=== PATIENT | female | born 1975 | race Caucasian/White ===

== ENCOUNTER → 2024-04-06 15:30 | Outpatient (BNVA) | payer OTHER, SELFPAY | PROVIDERS: Family Provider Nurse Practitioner Family; PCP Nurse Practitioner Family; Referring Provider Surgery; Visit Provider Obstetrics & Gynecology | DX: Z12.4 Encounter for screening for malignant neoplasm of cervix (principal) | CPT/HCPCS: 87624 ==

== ENCOUNTER 2024-04-21 09:29 | Day surgery (SDC) | payer OTHER, SELFPAY ==
[2024-04-21 09:55] VITALS: BP 115/83; PULSE 83; RESP 17; TEMP 36.5; O2SAT 97; BMI 34.6
[2024-04-21 10:00] LABS: OR HCG Qualitative Urine Negative (Negative)
[2024-04-21] MEDS: sodium chloride 0.9% 1,000 ML 30 ML IV (10:05)
--- NOTE | 2024-04-21 11:11 | ANES.PREANE2 ---
Pre-Anesthetic Assessment Height/Weight: Height 1.65 m Weight 94.347 kg Temp Pulse Resp BP Pulse Ox O2 Del Method 97.7 F 83 17 115/83 97 Room Air 04/21/24 09:55 04/21/24 09:55 04/21/24 09:55 04/21/24 09:55 04/21/24 09:55 04/21/24 09:55 Preop Diagnosis: GERD, screening Operation Date: 04/21/24 11:00 Proposed Procedures p EGD 61040, 34564, , G0105, R10.9(Not Applicable) - Darshan Mcgee DO s Colonoscopy(Not Applicable) - Darshan Mcgee DO Last intake: Intake Last Liquid Date 04/20/24 Last Liquid Time 20:00 Last Solid Date 04/19/24 Last Solid Time 16:00 Social No alcohol and No tobacco Exam alert and oriented x 3 Airway Submandibular: within normal limits Cervical ROM: within normal limits Mallampati: Class II Dentition: full History/ROS No significant history except as noted Pulmonary None reported CV/HEM None reported None reported Hepatic None reported GI Gastroesophageal Reflux Disease Metabolic None reported Musc/skel None reported Neuropsych None reported Anesthetic Plan ASA status: 1 Anesthesia: MAC Risk of > 500 ml blood loss (7ml/kg in children): No Medications/Allergies Home Medications Medication Instructions Recorded Confirmed Last Taken Type pantoprazole 40 mg tablet,delayed 40 mg PO BID 6 weeks #84 tabs 03/08/24 04/21/24 Unknown Rx release (Protonix) Allergies Allergy/AdvReac Type Severity Reaction Status Date / Time No Known Allergies Allergy Verified 04/19/24 12:17 Current Medications Generic Name Dose Route Start Last Admin Trade Name Freq PRN Reason Stop Dose Admin Sodium Chloride 1,000 mls @ 30 mls/hr 04/21/24 09:45 04/21/24 10:05 Sodium Chloride 0.9% IV 04/22/24 09:44 30 mls/hr .Q24H NICOLE Administration PFSH Anesthesia Medical History Contact dermatitis Surgical History History of hernia repair History of tubal ligation Family History Mother Hypertension Heart disease Seizure disorder Father Hypertension Stroke Social History Smoking and tobacco/nicotine status: never used tobacco/nicotine Alcohol intake: never Substance/Drug Use: never Sexually active: Yes Do you think of yourself as: Straight/Heterosexual Current gender identity: Female Data Anesthesia Cardiac Studies: No Data to Display
--- NOTE | 2024-04-21 11:12 | PM.HP ---
Providers/Chief Complaint Primary Care Provider: Evan Choi MD Chief Complaint: R10.9 History of Present Illness Roxanna Granados is a 48 year old female Review of Systems General: Reports: 10 or more systems reviewed and unremarkable except in HPI and below Medications/Allergies Home Medications Medication Instructions Recorded Confirmed Last Taken Type pantoprazole 40 mg tablet,delayed 40 mg PO BID 6 weeks #84 tabs 03/08/24 04/21/24 Unknown Rx release (Protonix) Allergies Allergy/AdvReac Type Severity Reaction Status Date / Time No Known Allergies Allergy Verified 04/19/24 12:17 PFSH Acute PFSH: Medical History Contact dermatitis Surgical History History of hernia repair History of tubal ligation Family History Mother Hypertension Heart disease Seizure disorder Father Hypertension Stroke Social History Smoking and tobacco/nicotine status: never used tobacco/nicotine Alcohol intake: never Substance/Drug Use: never Sexually active: Yes Do you think of yourself as: Straight/Heterosexual Current gender identity: Female Vitals/I&O/Wt Last Vital Signs Temp 97.7 F 04/21/24 09:55 Pulse 83 04/21/24 09:55 Resp 17 04/21/24 09:55 BP 115/83 04/21/24 09:55 Pulse Ox 97 04/21/24 09:55 O2 Del Method Room Air 04/21/24 09:55 Weight last 48 hrs Weight 208 lb A&P Assessment and plan (1) GI bleed: (2) GERD (gastroesophageal reflux disease): (3) Abdominal pain: (4) Bloating: (5) Colon cancer screening: Plan EGD and colonoscopy Attestations Medical Necessity Statement*: Home Coding Level of Care Code Acute Code for Chg Fwd Diagnoses GI bleed K92.2 GERD (gastroesophageal reflux disease) K21.9 Abdominal pain R10.9 Bloating R14.0 Colon cancer screening Z12.11
[2024-04-21 11:50] VITALS: BP 114/72; PULSE 73; RESP 18; TEMP 36.1; O2SAT 98
[2024-04-21 11:55] VITALS: BP 114/79; PULSE 78; RESP 18; O2SAT 97
[2024-04-21 12:08] VITALS: BP 126/84; PULSE 74; RESP 18; O2SAT 100
--- NOTE | 2024-04-21 12:46 | ANE.PACU2 ---
Inpatient post-anesthesia follow up: Airway intact: Yes Vital signs: Temperature 97.0 F Pulse Rate 74 Respiratory Rate 18 Blood Pressure 126/84 Pulse Oximetry 100 Oxygen Delivery Me thod Room Air Oxygen Flow Rate Fraction of Inspir ed Oxygen Hydration adequate: Yes Nausea and vomiting: No Pain level: 1 Mental status: Baseline
== END 2024-04-21 12:46 | disposition home or self-care (01) ==
PROVIDERS: Student in an Organized Health Care Education/Training Program; PCP Family Medicine; Visit Provider Surgery
PROC: 0DJ08ZZ Inspection of Upper Intestinal Tract, Via Natural or Artificial Opening Endoscopic (ICD-10-PCS; CPT 43235; principal; 2024-04-21 11:00)
PROC: 0DJD8ZZ Inspection of Lower Intestinal Tract, Via Natural or Artificial Opening Endoscopic (ICD-10-PCS; CPT 45378; 2024-04-21 11:00)
DX: K21.9 Gastro-esophageal reflux disease without esophagitis (principal); R14.0 Abdominal distension (gaseous); D12.5 Benign neoplasm of sigmoid colon; D12.3 Benign neoplasm of transverse colon; K29.70 Gastritis, unspecified, without bleeding; K64.8 Other hemorrhoids
CPT/HCPCS: 43239; 45385; 81025; 88305; J2704; J7030

== ENCOUNTER → 2024-05-05 13:06 | Outpatient (BNVA) | payer OTHER, SELFPAY | PROVIDERS: PCP Family Medicine; Visit Provider Obstetrics & Gynecology | DX: N92.6 Irregular menstruation, unspecified (principal) | CPT/HCPCS: 76830 ==

== ENCOUNTER 2024-06-18 12:04 | Emergency (ER) | payer SELFPAY ==
[2024-06-18 12:07] VITALS: BP 120/79; PULSE 83; RESP 18; TEMP 36.6; O2SAT 98; BMI 33.3
--- NOTE | 2024-06-18 12:29 | XR_ITS ---
WS: [id number] PORTABLE CHEST HISTORY: upper ab pain COMPARISON: 08/07/2014 Lungs are clear and well expanded. No pleural effusion or pneumothorax. Cardiac size: Normal. Mediastinum/Aorta: Normal mediastinum. No osseous abnormality seen. XR/XR chest 1V portable [id number] IMPRESSION: Unremarkable portable chest.
--- NOTE | 2024-06-18 12:30 | ED_ITS ---
HPI - Abdominal Pain 2 General: Chief Complaint: Abdominal Pain Stated Complaint: side pain Time Seen by Provider: 06/18/24 12:17 Source: patient and family Mode of arrival: ambulatory Limitations: no limitations History of Present Illness: Patient is a 48-year-old female presents to ED today initially with a complaint of left upper quadrant abdominal pain with radiation into her back. At time of my examination she tells me that her pain is completely gone . Patient states she began noticing pain yesterday evening. She states she intermittently had pain throughout the night when she would wake up. She states pain had been present all morning but subsided at time of arrival to the emergency department. When asked to point and describe her pain, she points to her left upper quadrant and left lower ribs and states it radiated around to her left flank and back. She described it as a sharp and stabbing pain. She had nausea. She denies dysuria, frequency, urgency, hematuria. No history of kidney or ureter stones. She is not having any chest pain, shortness of breath, difficulty breathing. She has had a nonproductive cough and nasal congestion. No fevers. She has not had any changes in her bowel movements. At its maximum intensity, she rated it at a 10/10. Currently at time of my examination she rates her pain at a 0/10. Pertinent past history: none Onset (ago): hour(s) Pain Consistency: now resolved Location: LUQ and L flank Severity: severe Quality: stabbing and sharp Radiation: none Migration to: no migration Exacerbating factors: movement Relieving factors: nothing Associated Symptoms: Reports nausea; Denies change in bowel habits, chills, diarrhea, dysuria, fever(s), syncope and vomiting Related Data Date of Last Menstrual Period: 06/06/24 Home Medications Medication Instructions Recorded Confirmed dextromethorphan-guaifenesin ER 60 1 tab PO Q12H 06/18/24 06/18/24 mg-1,200 mg tab,extend release,12hr (Mucinex DM) Previous Rx's Medication Instructions Recorded pantoprazole 40 mg tablet,delayed 40 mg PO BID 6 weeks #84 tabs 03/08/24 release (Protonix) solifenacin 10 mg tablet (Vesicare) 10 mg PO DAILY #30 tabs 05/24/24 ibuprofen 800 mg tablet 800 mg PO Q8H PRN pain #20 tabs 06/18/24 methocarbamol 500 mg tablet 1,000 mg (2 x 500 mg) PO Q8H #30 06/18/24 tabs Allergies Allergy/AdvReac Type Severity Reaction Status Date / Time No Known Allergies Allergy Verified 06/18/24 12:10 Review of Systems 2 Const: Denies: fever(s), chills, body aches, fatigue or malaise Card: Denies: chest pain, palpitations, irregular heart rhythm, edema, swelling of feet/ankles, lightheadedness, syncope, pre-syncope, dyspnea on exertion, orthopnea, leg pain with exertion or acrocyanosis Resp: Reports: non-productive cough; Denies: dyspnea, productive cough, wheezing, change in phlegm color, hemoptysis or chest congestion GI: Reports: abdominal pain and nausea; Denies: vomiting, diarrhea or change in bowel habits : Denies: flank pain, difficulty voiding, dysuria, urinary frequency, urinary urgency or urinary hesitancy Musc: Reports: back pain; Denies: neck pain, extremity pain, extremity swelling, joint pain or joint swelling Skin/Breast: Denies: rash Neuro: Denies: headache(s), numbness in extremities, weakness in extremities or sensory changes PFSH ED 2 PFSH: Medical History Contact dermatitis Surgical History History of hernia repair History of tubal ligation Family History Mother Hypertension Heart disease Seizure disorder Father Hypertension Stroke Social History Smoking and tobacco/nicotine status: never used tobacco/nicotine Alcohol intake: never Substance/Drug Use: never Sexually active: Yes Do you think of yourself as: Straight/Heterosexual Current gender identity: Female Female Reproductive History: Date of last menstrual period: 06/06/24 Physical Exam 2 Const: COMMON NORMALS: no acute distress, average body habitus, patient oriented x3, no limitations, healthy appearing, alert and well nourished G ENERAL APPEARANCE: cooperative ORIENTATION/CONSCIOUSNESS: Yes awake, Yes oriented to person, Yes oriented to place and Yes oriented to time HENMT: COMMON NORMALS: normocephalic and atraumatic HEAD & SCALP: normal to inspection, normocephalic and atraumatic Neck/C-Spine: COMMON NORMALS: full ROM, no lymphadenopathy, supple and no meningeal signs Chest: COMMONS NORMALS: normal inspection of the chest and normal palpation of entire chest wall Resp: COMMON NORMALS: normal respiratory effort and clear to auscultation bilaterally AUSCULTATION: clear to auscultation bilaterally Cardio: COMMON NORMALS: regular rate and regular rhythm RATE: regular rate RHYTHM: regular rhythm GI: COMMON NORMALS: Normal to inspection, nondistended, normoactive bowel sounds present, Soft to palpation, non-tender, No hepatosplenomegaly present and no masses PALPATION: Yes Soft to palpation and Yes No hepatosplenomegaly present : COMMON NORMALS: Yes no CVA tenderness BLADDER/KIDNEY EXAM: Yes no CVA tenderness Back/Pelvis: COMMON NORMALS: no CVA tenderness, thoracic and lumbar spine normal to inspection, no thoracic nor lumbar tenderness, thoraco-lumbar ROM normal and straight leg raise negative bilaterally Extremity: COMMON NORMALS: normal to inspection GENERAL: Yes normal exam except as noted Neuro: COMMON NORMALS: patient oriented x3, moves all extremities, no focal motor deficits and no sensory deficits noted SENSORIUM/ORIENTATION: Yes alert, Yes oriented to person, Yes oriented to place and Yes oriented to time MENINGEAL SIGNS: Yes no meningeal signs Skin: COMMON NORMALS: no rashes or lesions noted GENERAL SKIN EXAM: no rashes or lesions noted Course 2 Reevaluation(s): Reevaluation #1: During re-examination, patient tells me her pain is now back and rating it at a 10/10. She is rubbing her left flank and appears very uncomfortable. Will add CT imaging and give her something for pain and nausea. Vital Signs: Vital signs: Vital Signs Temperature 97.8 F 06/18/24 12:07 Pulse Rate 78 06/18/24 14:08 Respiratory Rate 16 06/18/24 14:08 Blood Pressure 127/78 06/18/24 14:08 Pulse Oximetry 97 06/18/24 14:08 Oxygen Delivery Me thod Room Air 06/18/24 12:07 MDM - Abdominal Pain Medical Decision Making Patient here for intermittent pain to her left upper quadrant/left flank. At time of my initial examination she was completely pain-free. Later during her stay pain did come back acutely and she localized pain to her left flank. Her vital signs have been stable throughout her stay. Her blood work overall is unremarkable. Her UA is clear. CT imaging showing incidental findings but no obvious source for her discomfort. CXR was unremarkable. At time of repeat examination-she is completely pain-free again. Patient will be allowed discharge with return precautions. Recommend she follow-up with primary care next week. Possible musculoskeletal etiology. We will trial her on anti- inflammatories and muscle relaxers and have her apply heat to the area. No rash to suggest shingles. Again strict return precautions verbally discussed with patient who voiced understanding. EKG was obtained in triage and unremarkable. Clinically I have no concern for cardiac etiology. Medical Records I reviewed the patient's medical records. Lab Data I reviewed the patient's lab results. 06/18/24 12:45 06/18/24 12:45 Labs/Radiology: Radiology Impressions Chest X-Ray 06/18/24 12:29 IMPRESSION: Unremarkable portable chest. Abdomen/Pelvis CT 06/18/24 13:40 IMPRESSION: 1. No renal obstruction or ureteral calcifications. 2. Normal appendix. 3. Enlarged lobulated uterus. Suspect fibroid uterus. 4. Cholelithiasis without acute cholecystitis. 5. Heterogeneous liver. There is 2 masses in the liver which need to be further evaluated. 1 of these is probably a cyst. The other is indeterminate. Recommend CT or MRI with liver mass protocol, with and without contrast. This can be done on a nonurgent basis. Laboratory Results WBC 5.43 10^3/uL (3.29-11.43) 06/18/24 12:45 RBC 3.70 10^6/uL (3.85-5.65) L 06/18/24 12:45 Hgb 10.90 g/dL (11.27-16.99) L 06/18/24 12:45 Hct 33.7 % (36-47) L 06/18/24 12:45 MCV 91.1 fl (85-98) 06/18/24 12:45 MCH 29.5 pg (27-33) 06/18/24 12:45 MCHC 32.3 g/dL (30-55) 06/18/24 12:45 RDW 12.9 % (12.1-15.1) 06/18/24 12:45 Plt Count 289 10^3/cmm (157-399) 06/18/24 12:45 MPV 9.8 fL (7.4-10.4) 06/18/24 12:45 Neut % (Auto) 65.4 % 06/18/24 12:45 Lymph % (Auto) 13.8 % 06/18/24 12:45 [place] % (Auto) 16.6 % 06/18/24 12:45 Eos % (Auto) 3.3 % 06/18/24 12:45 Baso % (Auto) 0.7 % 06/18/24 12:45 Neut # (Auto) 3.55 10^3/uL (1.8-7.7) 06/18/24 12:45 Lymph # (Auto) 0.8 10^3/uL (0.8-4.8) 06/18/24 12:45 [place] # (Auto) 0.9 10^3/uL (0.2-0.9) 06/18/24 12:45 Eos # (Auto) 0.2 10^3/uL (0.0-0.8) 06/18/24 12:45 Baso # (Auto) 0.0 10^3/uL (0.0-0.1) 06/18/24 12:45 Nucleated RBC % (auto) 0 % 06/18/24 12:45 Nucleated RBCs # 0.0 /100WBC 06/18/24 12:45 Sodium 137 mmol/L (136-145) 06/18/24 12:45 Potassium 4.0 mmol/L (3.5-5.1) 06/18/24 12:45 Chloride 103 mmol/L (98-107) 06/18/24 12:45 Carbon Dioxide 25 mmol/L (22-29) 06/18/24 12:45 Anion Gap 13.0 (5-19) 06/18/24 12:45 BUN 8 mg/dL (6-20) 06/18/24 12:45 Creatinine 0.7 mg/dL (0.5-0.9) 06/18/24 12:45 GFR Calculation 89.7 mL/min (90-130) L 06/18/24 12:45 Glucose 105 mg/dL (65-115) 06/18/24 12:45 Calculated Osmolality 283 mOsm/kg (285-295) L 06/18/24 12:45 Calcium 9.9 mg/dL (8.5-10.5) 06/18/24 12:45 Total Bilirubin 0.3 mg/dL (0.15-1.2) 06/18/24 12:45 AST 14 U/L (0-32) 06/18/24 12:45 ALT 9 U/L (0-33) 06/18/24 12:45 Alkaline Phosphatase 67 U/L (35-105) 06/18/24 12:45 Total Protein 7.3 g/dL (6.6-8.7) 06/18/24 12:45 Albumin 3.9 g/dL (3.5-5.2) 06/18/24 12:45 Globulin 3.4 g/dL (1.3-4.6) 06/18/24 12:45 Lipase 24 U/L (13-60) 06/18/24 12:45 HCG, Qual Negative (Negative) 06/18/24 12:45 Urine Color Yellow (Yellow) 06/18/24 12:47 Urine Appearance Clear (CLEAR) 06/18/24 12:47 Urine pH 8.5 (5-7) A 06/18/24 12:47 Ur Specific [place] 1.018 (1.005-1.030) 06/18/24 12:47 Urine Protein Negative (Negative) 06/18/24 12:47 Urine Glucose (UA) Negative (Normal) 06/18/24 12:47 Urine Ketones Negative (Negative) 06/18/24 12:47 Urine Blood Negative (Negative) 06/18/24 12:47 Urine Nitrate Negative (Negative) 06/18/24 12:47 Urine Bilirubin Negative (Negative) 06/18/24 12:47 Urine Urobilinogen 0.2 mg/dL (Negative) 06/18/24 12:47 Ur Leukocyte Esterase Negative (Negative) 06/18/24 12:47 Urine RBC 0-2 /hpf (0-2) 06/18/24 12:47 Urine WBC 0-5 /hpf (0-5) 06/18/24 12:47 Ur Squamous Epith Cells 0-5 /hpf (0-5) 06/18/24 12:47 Amorphous Sediment Not Reportable 06/18/24 12:47 Urine Bacteria None seen /hpf (NONE) 06/18/24 12:47 Hyaline Casts 0.40 /lpf 06/18/24 12:47 All radiology interpretation(s) finalized by discharge Discharge Plan Discharge Patient Disposition: Home Clinical Impression: Acute left flank pain Condition: Stable Prescriptions: New methocarbamol 500 mg tablet 1,000 mg PO Q8H Qty: 30 0RF ibuprofen 800 mg tablet 800 mg PO Q8H PRN (Reason: pain) Qty: 20 0RF No Action solifenacin [Vesicare] 10 mg tablet 10 mg PO DAILY Qty: 30 3RF pantoprazole [Protonix] 40 mg tablet,delayed release (DR/EC) 40 mg PO BID 42 Days Qty: 84 1RF dextromethorphan-guaifenesin [Mucinex DM] 60-1,200 mg Tablet Extended Release 12 Hr 1 tab PO Q12H Discharge Orders: Discharge ED (Routine); Ordered 06/18/24 Ordered By: Breanna Jacobson Referrals: Remi Segovia [Family Provider] - Ck Willoughby FNP [Primary Care Provider] - Activity Restrictions/Additional Instructions: As we discussed, please follow-up with primary care next week if symptoms persist. You may return to the emergency department for worsening or severe pain, fevers, repetitive episodes of vomiting, generally feeling worse or unwell, or any other concerns you may have. Hope you begin to feel better soon. We discussed incidental findings found on your CT scan today. As we discussed they are recommending further imaging of your liver on a nonemergent basis. Coding Level of Care Code ED [employer] Worker for Zac Serrano
[2024-06-18 12:49] VITALS: BP 146/103; PULSE 70; RESP 16; O2SAT 98
[2024-06-18 12:55] LABS: Basophils % 0.7 %; Eosinophils # 0.2 10^3/uL (0.0-0.8); Eosinophils % 3.3 %; Hematocrit 33.7 % (36-47); Lymphocytes # 0.8 10^3/uL (0.8-4.8); Lymphocytes % 13.8 %; Mean Corpuscular HGB Conc 32.3 g/dL (30-55); Mean Corpuscular Hemoglobin 29.5 pg (27-33); Mean Corpuscular Volume 91.1 fl (85-98); Mean Platelet Volume 9.8 fL (7.4-10.4); Monocytes # 0.9 10^3/uL (0.2-0.9); Monocytes % 16.6 %; Neutrophils # 3.55 10^3/uL (1.8-7.7); Neutrophils % 65.4 %; Nucleated Red Blood Cells % 0 %; Platelet Count 289 10^3/cmm (157-399); Red Cell Distribution Width 12.9 % (12.1-15.1); White Blood Count 5.43 10^3/uL (3.29-11.43)
[2024-06-18 13:08] LABS: Bilirubin Urine Negative (Negative); Blood Urine Negative (Negative); Glucose Urine UA Negative (Normal); Ketones Urine Negative (Negative); Leukocyte Esterase Urine Negative (Negative); Nitrate Urine Negative (Negative); Protein Urine Negative (Negative); Specific Gravity, Urine 1.018 (1.005-1.030); Urine Appearance Clear (CLEAR); Urine Color Yellow (Yellow); Urobilinogen Urine 0.2 mg/dL (Negative); pH Urine 8.5 (5-7)
[2024-06-18 13:09] LABS: HCG, Serum Qual Negative (Negative)
[2024-06-18 13:13] LABS: Add Urine Microscopic? YES; Bacteria Urine None Seen /hpf; RBC Urine 0-2 /hpf (0-2); Squamous Epithelial Cell Urine 0-5 /hpf (0-5); WBC Urine 0-5 /hpf (0-5)
[2024-06-18 13:15] LABS: Alanine Aminotransferase 9 U/L (0-33); Albumin Level 3.9 g/dL (3.5-5.2); Alkaline Phosphatase 67 U/L (35-105); Aspartate Amino Transferase 14 U/L (0-32); Blood Urea Nitrogen 8 mg/dL (6-20); Calcium 9.9 mg/dL (8.5-10.5); Carbon Dioxide 25 mmol/L (22-29); Chloride 103 mmol/L (98-107); Creatinine Clr Calc Pharmacy 110.5558; Globulin 3.4 g/dL (1.3-4.6); Glomerular Filtration Rate 89.7 mL/min (90-130); Glucose 105 mg/dL (65-115); Lipase 24 U/L (13-60); Osmolality Calculated 283 mOsm/kg (285-295); Sodium 137 mmol/L (136-145); Total Bilirubin 0.3 mg/dL (0.15-1.2); Total Protein 7.3 g/dL (6.6-8.7)
--- NOTE | 2024-06-18 13:40 | CT_ITS ---
WS: [id number] CT ABDOMEN AND PELVIS NONCONTRAST HISTORY: L flank pain TECHNIQUE: Imaging performed through the abdomen and pelvis. Coronal and sagittal reformats are submi tted. All CT scans at [facility] use at least one of these dose optimization techniques: auto mated exposure control; mA and/or kV adjustment per patient size (includes targeted exams where dose is matched to clinical indication); or iterative reconstruction. DLP: 744.82 mGy.cm COMPARISON: None available. Lower thorax: Benign granuloma RIGHT lower lobe. Heart size is normal. Small hiatal hernia. Liver: Normal size liver. Low-attenuation mass in the superior liver measures 0.8 cm probably represe nting a small cyst. There is an additional hypoechoic area in the RIGHT lobe of the liver measuring 1 .3 cm. No intrahepatic duct dilatation. Gallbladder: Cholelithiasis without acute cholecystitis. Numerous stones present in the gallbladder. Pancreas: Normal size and attenuation. Normal pancreatic duct. No pancreatitis or mass. Spleen: Normal. Adrenal glands: Normal. No mass. Right kidney: Normal size kidney with no mass or hydronephrosis. Left kidney: Normal size kidney. No obstruction. Too small to characterize cortical hypodensity measu ring 6 mm. Aorta: Normal abdominal aorta, no aneurysm or atherosclerosis. No free fluid, intraperitoneal air or significant lymphadenopathy. GI tract: Normal noncontrast imaging of the stomach, small bowel and colon. No obstruction or wall th ickening. Normal appendix. Abdominal wall: Diastases rectus and a small umbilical hernia containing fat only. Pelvis: Uterus is enlarged and bulbous in appearance. Uterine fibroid likely. There is no free fluid. Osseous structures: L5 anterolisthesis by [address]/CT kidney stone [id number] IMPRESSION: 1. No renal obstruction or ureteral calcifications. 2. Normal appendix. 3. Enlarged lobulated uterus. Suspect fibroid uterus. 4. Cholelithiasis without acute cholecystitis. 5. Heterogeneous liver. There is 2 masses in the liver which need to be furthe r evaluated. 1 of these is probably a cyst. The other is indeterminate. Recomme nd CT or MRI with liver mass protocol, with and without contrast. This can be d one on a nonurgent basis.
[2024-06-18] MEDS: ketorolac 60 mg/2 mL INJ 30 MG IVP (14:01)
[2024-06-18 14:02] VITALS: RESP 16
[2024-06-18] MEDS: morphine 4 mg/mL SDV 1 mL IVP (14:02)
[2024-06-18] MEDS: ondansetron 2 mg/ML SDV 2 mL 4 MG IVP (14:02)
[2024-06-18 14:08] VITALS: BP 127/78; PULSE 78; RESP 16; O2SAT 97
[2024-06-18 14:40] VITALS: BP 116/76; PULSE 73; RESP 16; O2SAT 97
== END 2024-06-18 14:41 | disposition home or self-care (01) ==
PROVIDERS: Emergency Provider Physician Assistant; Family Provider Family Medicine; PCP Registered Nurse
DX: R10.12 Left upper quadrant pain (principal)
CPT/HCPCS: 71045; 74176; 80053; 81001; 83690; 84703; 85025; 96374; 96375; 99285; J1885; J2270; J2405

== ENCOUNTER → 2024-06-29 10:47 | Outpatient (BNVA) | payer OTHER, SELFPAY | PROVIDERS: Family Provider Family Medicine; PCP Registered Nurse; Visit Provider Obstetrics & Gynecology | DX: R87.629 Unspecified abnormal cytological findings in specimens from vagina (principal); N93.9 Abnormal uterine and vaginal bleeding, unspecified | CPT/HCPCS: 81025; 88305 ==

== ENCOUNTER 2024-08-12 10:38 | Observation (INO) | payer OTHER, SELFPAY ==
--- NOTE | 2024-08-11 19:44 | W.PM.OPSFHP ---
Same Day Surgery H&P Indication for Procedure/HPI DATE OF PROCEDURE: August 12, 2024 CHIEF COMPLAINT/INDICATIONFOR SURGICAL PROCEDURE: menometrorrhagia pelvic prolapse PREOP DIAGNOSIS: menometrorrhagia; pelvic prolapse PLANNED PROCEDURE: Operation Date: 08/12/24 07:00 Proposed Procedures p Total Vaginal Hysterectomy 22232, 63804, N81.4, N93.9(Not Applicable) - Archie Brito MD s Sacrospinous Ligament Suspension(Not Applicable) - Archie Brito MD 48 y.o. h/o x four h/o BTL h/o irregular, occasionally heavy, bleeding and 3+ uterine prolapse now scheduled for total vaginal hysterectomy, sacrospinous ligament suspension, possible posterior colporrhaphy Medications/Allergies* Home Medications ?Medication ?Instructions ?Recorded ?Confirmed ?Type dextromethorphan-guaifenesin ER 60 1 tab PO Q12H 06/18/24 08/09/24 History mg-1,200 mg tab,extend release,12hr (Mucinex DM) Allergies/Adverse Reactions Allergy/AdvReac Type Severity Reaction Status Date / Time No Known Allergies Allergy Verified 08/09/24 15:35 Pertinent History/Comorbid Conditions* Medical History (Updated 06/26/24 @ 00:00 by BERTIN Mazariegos) Contact dermatitis Surgical History (Updated 02/02/22 @ 07:42 by Cody Uribe MD) History of hernia repair History of tubal ligation Family History (Updated 04/23/21 @ 09:47 by Tita Mayen LPN) Heart disease Mother Seizure disorder Mother Hypertension Mother Father Stroke Father Social History Smoking and tobacco/nicotine status: never used tobacco/nicotine Alcohol intake: never Substance/Drug Use: never Sexually active: Yes Do you think of yourself as: Straight/Heterosexual Current gender identity: Female Pertinent Exam Findings alert, oriented x 3, clear to auscultation bilaterally and regular rate & rhythm Recommendations Surgery/Procedure today Coding Level of Care Code Acute Code for Chg Fwd Time Spent (min) 20
[2024-08-12] VITALS (17 sets, daily range): BP systolic 94–143; BP diastolic 57–78; PULSE 71–96; RESP 15–18; TEMP 36.5–36.9; O2SAT 96–100; BMI 33.3
[2024-08-12] MEDS: sodium chloride 0.9% 1,000 ML 30 ML IV (06:11)
[2024-08-12] MEDS: metroNIDAZOLE IV 500 MG/100 ML PREMIX 100 MG IV (06:12)
[2024-08-12 06:17] LABS: OR HCG Qualitative Urine Negative (Negative)
--- NOTE | 2024-08-12 06:52 | ANES.PREANE2 ---
Pre-Anesthetic Assessment Height/Weight: Height 5 ft 5 in Weight 200 lb Temp Pulse Resp BP Pulse Ox O2 Del Method 97.7 F 76 18 143/78 100 Room Air 08/12/24 05:53 08/12/24 05:53 08/12/24 05:53 08/12/24 05:53 08/12/24 05:53 08/12/24 05:58 Preop Diagnosis: menometrorrhagia, pelvic prolapse Operation Date: 08/12/24 07:00 Proposed Procedures p Total Vaginal Hysterectomy 02133, 55438, N81.4, N93.9(Not Applicable) - Archie Brito MD s Sacrospinous Ligament Suspension(Not Applicable) - Archie Brito MD Was Beta Luis taken within 24 hours: N/A Was Clonidine taken within 24 hours: N/A Last intake: Intake Last Liquid Date 08/11/24 Last Liquid Time 22:00 Last Solid Date 08/11/24 Last Solid Time 20:00 Social No alcohol and No tobacco Exam alert, oriented x 3, clear to auscultation bilaterally and regular rate & rhythm Airway Submandibular: within normal limits Cervical ROM: within normal limits Mallampati: Class II Dentition: full Anesthetic Plan ASA status: 2 Anesthesia: General Other: History of PONV, this was after a hernia surgery NPO since yesterday evening History of GERD, controlled with medicine Denies any cardiac issues. Preop BP 143/78 test negative METs greater than 4 Plan for general anesthesia Medications/Allergies Home Medications ?Medication ?Instructions ?Recorded ?Confirmed ?Last Taken ?Type solifenacin 10 mg tablet (Vesicare) 10 mg PO DAILY #30 tabs 05/24/24 08/09/24 08/11/24 Rx dextromethorphan-guaifenesin ER 60 1 tab PO Q12H 06/18/24 08/09/24 08/11/24 History mg-1,200 mg tab,extend release,12hr (Mucinex DM) Allergies Allergy/AdvReac Type Severity Reaction Status Date / Time No Known Allergies Allergy Verified 08/09/24 15:35 Current Medications Generic Name Dose Route Start Last Admin Trade Name Freq PRN Reason Stop Dose Admin Sodium Chloride 1,000 mls @ 30 mls/hr 08/12/24 06:00 08/12/24 06:11 Sodium Chloride 0.9% IV 08/13/24 05:59 30 mls/hr .Q24H NICOLE Administration PFSH Anesthesia Medical History Contact dermatitis Surgical History History of hernia repair History of tubal ligation Family History Mother Hypertension Heart disease Seizure disorder Father Hypertension Stroke Social History Smoking and tobacco/nicotine status: never used tobacco/nicotine Alcohol intake: never Substance/Drug Use: never Sexually active: Yes Do you think of yourself as: Straight/Heterosexual Current gender identity: Female Data Anesthesia Cardiac Studies: No Data to Display
--- NOTE | 2024-08-12 06:58 | W.PM.OPSUD ---
Surgery/Procedure H&P Update DATE OF PROCEDURE: August 12, 2024 DATE H&P PERFORMED: 08/11/24 H&P UPDATE INFORMATION: I have reviewed H&P completed within last 30 days, I have examined patient prior to procedure and No changes to prior documentation PREOP DIAGNOSIS: menometrorrhagia, pelvic prolapse PLANNED PROCEDURE: Operation Date: 08/12/24 07:00 Proposed Procedures p Total Vaginal Hysterectomy 26803, 07550, N81.4, N93.9(Not Applicable) - Archie Brito MD s Sacrospinous Ligament Suspension(Not Applicable) - Archie Brito MD
[2024-08-12] MEDS: scopolamine 1 mg PATCH 1 PATCH TRANSDERMA (07:00)
[2024-08-12] MEDS: ceFAZolin 2,000 mg SDV 2000 MG IVP (07:30)
[2024-08-12] MEDS: lidocaine-epi 2% PF 1:200,000 20 mL SDV XX ×2 (08:01→09:36)
--- NOTE | 2024-08-12 09:02 | SUR.OPER ---
0902 FAMILY UPDATED BY AG
--- NOTE | 2024-08-12 10:41 | ANE.PACU2 ---
Inpatient post-anesthesia follow up: Airway intact: Yes Vital signs: Temperature 97.8 F Pulse Rate 77 Respiratory Rate 15 Blood Pressure 112/66 Pulse Oximetry 97 Oxygen Delivery Me thod Room Air Oxygen Flow Rate 6 Fraction of Inspir ed Oxygen Hydration adequate: Yes Nausea and vomiting: No Pain level: 1 Mental status: Baseline
[2024-08-12] MEDS: dextrose 5%-lactated ringers 1,000 ML 125 ML IV ×2 (11:02→19:28)
--- NOTE | 2024-08-12 11:05 | PM.OP ---
Operative Report Date of procedure: August 12, 2024 Pre-op diagnosis: Menometrorrhagia Uterovaginal prolapse stage III Post-op diagnosis: same Post-op findings: Markedly enlarged cervix Moderately enlarged uterus Uterovaginal prolapse Procedure done: Total vaginal hysterectomy Sacrospinous ligament suspension Posterior colporrhaphy Specimens removed/disposition: uterus, to pathology vaginal mucosa, discarded Surgeon: Jerry Frazier MD Train Inspector: Archie Brito MD Anesthesia: General Estimated blood loss (mL): 75 Complications: none Findings: Markedly enlarged cervix Moderately enlarged uterus Uterovaginal prolapse Condition: stable Disposition: PACU Brief History: 48 y.o. with history of menometrorrhagia and uterovaginal prolapse Procedure: Informed consent signed with patient after procedures and risks discussed with patient. The patient was taken to the operating room. General anesthesia was induced. Time-out procedure was carried out. A hilton catheter was placed. A Bookwalter vaginal retractor was placed. The cervico-vaginal junction was circumferentially infiltrated with 2% lidocaine with epinephrine. The cervico-vaginal junction was incised circumferentially with a bovie and the bladder was dissected of the pubovesical cervical fascia anteriorly with scissors and bluntly with a sponge stick. The anterior cul-de-sac was entered, avoiding the bladder. Similarly, the posterior cul-de-sac was entered, avoiding the bowel. The uterosacral ligaments were ligated with O-Vicryl. The Ligasure device was then used to coagulate and cut the cardinal ligaments bilaterally. This was done serially on both sides up the sides of the uterus, coagulating and cutting the uterine arteries, broad ligaments, cornua, and utero-ovarian ligaments. Hemostasis was assured at every step. The uterus was excised and sent to pathology. The pedicles on both sides were inspected for hemostasis. Good hemostasis was seen. The peritoneum was then closed in a [id number] fashion with O-Vicryl suture. The vaginal cuff was closed with O-Vicryl suture ligatures and transfixed with the uterosacral ligaments. A 10 cc solution of 3% lidocaine with epinephrine was infiltrated under the posterior vaginal mucosa midline and into the perineal body. The posterior vaginal wall was opened vertically and midline up to the apex of the rectocele. The cut edges were splayed laterally, the vaginal mucosa from the underlying perirectal fascia. In this fashion, the rectovaginal space was opened. The sacrospinous ligament was palpated and an area was selected for insertion of the Anchorsure transvaginal sacrospinous fixation system. One end of the suture of the Anchoresure system was inserted through the sacrospinous ligament and the other end was placed through the muscular layer of the vagina. A second suture was placed similarly. The perirectal fascia was reapproximated with interrupted 2-O Vicryl sutures to draw the lateral folds together and tuck the rectocele back. Deep interrupted sutures of O_Vicryl were used to reapproximate the fibers of the levator ani muscles. The sacrospinous ligament fixation sutures were then tied and cut, elevating the vagina. The excess vaginal mucosa was trimmed. The posterior vaginal wall was closed with a running locked O_Vicryl suture. No bleeding was seen. A vaginal packing was placed. The patient was placed supine and taken to the PACU in good condition. Postoperative condition Stable EBL: 75 cc Complications: none
[2024-08-12] MEDS: HYDROcodone-acetaminophen 5-325 mg Tablet PO (15:08)
[2024-08-12] MEDS: ketorolac 30 mg/mL INJ IVP ×2 (15:55→22:08)
--- NOTE | 2024-08-12 17:39 | PC.NURSE ---
This nurse assisted patient to the chair. Patient ambulated well with standby assistance and tolerated activity well.
--- NOTE | 2024-08-12 18:41 | PC.NURSE ---
Patient ambuated 2 laps around OB unit with this RN. Patient tolerated activity well.
[2024-08-12] MEDS: docusate sodium 100 mg Capsule PO (19:31)
[2024-08-13] MEDS: ketorolac 30 mg/mL INJ IVP (04:22)
[2024-08-13 05:20] VITALS: BP 101/58; PULSE 81; RESP 16; TEMP 36.6
[2024-08-13 05:59] LABS: Hematocrit 26.7 % (36-47); Mean Corpuscular HGB Conc 31.8 g/dL (30-55); Mean Corpuscular Hemoglobin 28.5 pg (27-33); Mean Corpuscular Volume 89.6 fl (85-98); Mean Platelet Volume 9.4 fL (7.4-10.4); Platelet Count 261 10^3/cmm (157-399); Red Blood Count 2.98 10^6/uL (3.85-5.65); Red Cell Distribution Width 14.1 % (12.1-15.1); White Blood Count 11.79 10^3/uL (3.29-11.43)
[2024-08-13] MEDS: docusate sodium 100 mg Capsule PO (09:35)
[2024-08-13 09:36] VITALS: BP 117/61; PULSE 86; RESP 16; TEMP 36.7
[2024-08-13] MEDS: ibuprofen 800 mg tablet PO (09:36)
[2024-08-13] MEDS: HYDROcodone-acetaminophen 5-325 mg Tablet PO (12:19)
[2024-08-13 12:20] VITALS: BP 104/62; PULSE 72; RESP 15; TEMP 36.6; O2SAT 99
[2024-08-13 12:30] VITALS: BP 104/62; PULSE 72; RESP 15; TEMP 36.6; O2SAT 99
== END 2024-08-13 12:30 | disposition home or self-care (01) ==
LOC: OBGYN 10:39
PROVIDERS: Student in an Organized Health Care Education/Training Program; Admitting Provider Obstetrics & Gynecology; Family Provider Family Medicine; PCP Registered Nurse; Visit Provider Obstetrics & Gynecology
PROC: (CPT 58260; 2024-08-12 07:00)
PROC: (CPT 57282; 2024-08-12 07:00)
PROC: (CPT 57250; 2024-08-12 07:00)
DX: D25.1 Intramural leiomyoma of uterus (principal); N72 Inflammatory disease of cervix uteri; N87.9 Dysplasia of cervix uteri, unspecified; N94.89 Other specified conditions associated with female genital organs and menstrual cycle; N92.1 Excessive and frequent menstruation with irregular cycle; N81.3 Complete uterovaginal prolapse; K21.9 Gastro-esophageal reflux disease without esophagitis; Z79.899 Other long term (current) drug therapy
CPT/HCPCS: 58260; 57250; 57282; 36415; 81025; 85027; 86850; 86900; 88307; 96374; 96376; C1713; G0378; J0330; J0690; J1100; J1171; J1200; J1885; J2250; J2405; J2704; J2710; J3010; J3490; J7030; J7121

== ENCOUNTER 2024-11-05 14:41 | Emergency (ER) | payer OTHER, SELFPAY ==
[2024-11-05 14:52] VITALS: BP 138/90; PULSE 88; RESP 16; TEMP 36.7; O2SAT 98; BMI 34.4
--- NOTE | 2024-11-05 15:30 | CTR_ITS ---
PROCEDURE INFORMATION: Exam: CT Pelvis Without Contrast, Skeleton Exam date and time: 11/05/2024 4:20 PM Age: 49 years old Clinical indication: Injury or trauma; Fall and other: Fall from horse; Blunt trauma (contusions or hematomas); Right; Pelvic region; Additional info: R sacral/pelvis pain; Fall from horse TECHNIQUE: Imaging protocol: Computed tomography of the pelvis without contrast. Exam focused on the skeleton. Radiation optimization: All CT scans at this facility use at least one of these dose optimization techniques: automated exposure control; mA and/or kV adjustment per patient size (includes targeted exams where dose is matched to clinical indication); or iterative reconstruction. COMPARISON: CT kidney stone [id number] 06/18/2024 1:46 PM RADIATION DOSE METRICS: Total DLP (mGy-cm): 675.04 FINDINGS: Intraperitoneal space: No intraperitoneal or extraperitoneal fluid or blood in the pelvis. Reproductive: The uterus is absent. There is no adnexal mass or large cyst. Bones/joints: There is mild degenerative disease in the lower lumbar spine. There are chronic bilateral L5 pars defects with grade 1 anterolisthesis of L5 on S1. Sacrum is intact. SI joints are symmetric. Hips are normal. No femoral or pelvic fracture. Soft tissues: There is marked laxity of the pelvic floor. Pelvic musculature is unremarkable. CT/CT bony pelvis [id number] IMPRESSION: 1. No acute fracture. 2. Chronic bilateral L5 pars defects with grade 1 anterolisthesis of L5 on S1. 3. Pelvic floor laxity.
--- NOTE | 2024-11-05 15:30 | W.ED.BACK ---
HPI - Back Pain/Injury General: Chief Complaint: Back Pain/Injury Stated Complaint: fell off horse Time Seen by Provider: 11/05/24 15:22 Source: patient Mode of arrival: wheelchair Limitations: no limitations History of Present Illness: Patient is a nice 49-year-old female presents to ED today after she fell from a horse just prior to arrival. She is complaining of pain to her right lower back/sacral/right posterior pelvic region. She states she cannot bear weight secondary to pain. No other injuries or complaints at this time. She denies striking her head or LOC. No neck pain. MD elicited complaint: back pain Pertinent past history: recent trauma Onset (ago): hour(s) Timing: constant Severity: severe Similar Symptoms Previously: No Location: right lower back Radiation: none Exacerbating factors: movement and walking Relieving factors: none Context: other (fall from horse) Associated symptoms: Reports difficulty walking (secondary to pain); Deny abdominal pain, hematuria or syncope Work related injury: No Related Data Home Medications ?Medication ?Instructions ?Recorded ?Confirmed acetaminophen 325 mg capsule 325 mg PO QID PRN Pain 08/19/24 11/05/24 Allergies Allergy/AdvReac Type Severity Reaction Status Date / Time No Known Allergies Allergy Verified 11/05/24 14:57 Review of Systems Eyes: Denies: change in vision, blurry vision, photophobia, eye discharge, floaters or seeing flashes ENMT: Denies: throat pain, odynophagia, ear or mastoid pain, ear discharge, nasal discharge, epistaxis or sinus pain Card: Denies: chest pain, palpitations, lightheadedness, syncope or pre-syncope Resp: Denies: dyspnea or pain on inspiration GI: Denies: abdominal pain : Denies: flank pain or hematuria Musc: Reports: back pain (R sacral) and joint pain (R posterior hip/pelvis); Denies: neck pain or extremity pain Neuro: Reports: difficulty walking (secondary to pain); Denies: headache(s), numbness in extremities, weakness in extremities, sensory changes or dizziness [facility] ED PFSH: Medical History Contact dermatitis Surgical History History of total vaginal hysterectomy (TVH) (~08/12/24) Sacrospinous ligament suspension Posterior colporrhaphy History of hernia repair History of tubal ligation Family History Mother Hypertension Heart disease Seizure disorder Father Hypertension Stroke Social History Smoking and tobacco/nicotine status: never used tobacco/nicotine Alcohol intake: never Substance/Drug Use: never Sexually active: Yes Do you think of yourself as: Straight/Heterosexual Current gender identity: Female Physical Exam Const: COMMON NORMALS: no acute distress, average body habitus, patient oriented x3, no limitations, healthy appearing, alert and well nourished GENERAL APPEARANCE: cooperative ORIENTATION/CONSCIOUSNESS: Yes awake, Yes oriented to person, Yes oriented to place and Yes oriented to time HENMT: COMMON NORMALS: normocephalic, atraumatic and TM's normal bilaterally HEAD & SCALP: normal to inspection, normocephalic and atraumatic; no Juarez's sign, no hematoma and no raccoon eyes FACE & SINUS: normal facial exam TYMPANIC MEMBRANE: TM's normal bilaterally MOUTH: other (no intraoral injuries noted) Eye: COMMON NORMALS: Equal, round and reactive pupils present and EOMs intact bilaterally GENERAL EYE: appearance normal, both eyes and all related structures and normal light reflex PUPIL: Yes Equal, round and reactive pupils present DIRECT OPHTHALMOSCOPY: Yes normal light reflex Neck/C-Spine: COMMON NORMALS: full ROM GENERAL: Yes normal visual inspection CERVICAL SPINE: Yes cervical ROM normal, No pain with cervical ROM, No Cervical spine tenderness, No step off deformity and No Paracervical muscle tenderness Chest: COMMONS NORMALS: normal inspection of the chest and normal palpation of entire chest wall Resp: COMMON NORMALS: normal respiratory effort and clear to auscultation bilaterally AUSCULTATION: clear to auscultation bilaterally Cardio: COMMON NORMALS: regular rate and regular rhythm RATE: regular rate RHYTHM: regular rhythm GI: COMMON NORMALS: Normal to inspection, nondistended, normoactive bowel sounds present, Soft to palpation, non-tender, No hepatosplenomegaly present and no masses INSPECTION: Yes normal to inspection and No abdominal wall ecchymosis AUSCULTATION: Yes normoactive bowel sounds PALPATION: Yes Soft to palpation and Yes No hepatosplenomegaly present Back/Pelvis: COMMON NORMALS: thoracic and lumbar spine normal to inspection, no thoracic nor lumbar tenderness and thoraco-lumbar ROM normal SACROILIAC JOINTS: Yes SI joint(s) abnormal SI joint details: tender to palpation SACRUM: tenderness COCCYX: Coccyx tenderness present BACK IMAGE (FEMALE):  1. TTP Extremity: COMMON NORMALS: normal to inspection and capillary refill normal GENERAL: Yes normal exam except as noted RIGHT LOWER EXTREMITY: Yes hip joint (limited ROM R hip due to pain in sacral area) Right hip: Yes neurovascular exam (normal) Neuro: PATTI COMA SCALE: document GCS findings Patti coma scale eye opening: Spontaneous Patti coma scale verbal response: Orientated Patti coma scale motor response: Obey commands Patti coma scale total score: 15 COMMON NORMALS: patient oriented x3, moves all extremities, no focal motor deficits and no sensory deficits noted SENSORIUM/ORIENTATION: Yes alert, Yes oriented to person, Yes oriented to place and Yes oriented to time SPEECH: speech normal GAIT: Yes Normal gait present and Yes Unable to assess gait Skin: COMMON NORMALS: no rashes or lesions noted GENERAL SKIN EXAM: no rashes or lesions noted TRAUMA: no lacerations or abrasions Course Vital Signs: Vital signs: Vital Signs Temperature 98.1 F 11/05/24 14:52 Pulse Rate 88 11/05/24 14:52 Respiratory Rate 16 11/05/24 14:52 Blood Pressure 138/90 11/05/24 14:52 Pulse Oximetry 98 11/05/24 14:52 Oxygen Delivery Me thod Room Air 11/05/24 14:52 MDM - Back Pain/Injury Medical Decision Making CT of her bony pelvis unremarkable for acute fracture. She will be allowed discharge with return precautions. Medical Records I reviewed the patient's medical records. Labs Radiology Impressions Pelvis CT 11/05/24 15:30 IMPRESSION: 1. No acute fracture. 2. Chronic bilateral L5 pars defects with grade 1 anterolisthesis of L5 on S1. 3. Pelvic floor laxity. All radiology interpretation(s) finalized by discharge Discharge Plan Discharge Patient Disposition: Home Clinical Impression: Contusion of lower back and pelvis, initial encounter Condition: Stable Prescriptions: No Action acetaminophen 325 mg capsule 325 mg PO QID PRN (Reason: Pain) Discharge Orders: Discharge ED (Routine); Ordered 11/05/24 Ordered By: Breanna Jacobson Activity Restrictions/Additional Instructions: As we discussed, CT imaging of your lower back, pelvis, hip were unremarkable/no fractures visualized. We discussed conservative therapy at home. He may return to the emergency department for worsening pain or any new concerns you may have. I hope you begin to feel better soon. Print Language: Italian Coding Level of Care Code ED Environmental Consultant for Zac Serrano
[2024-11-05 17:13] VITALS: BP 123/81; PULSE 84; O2SAT 98
== END 2024-11-05 17:15 | disposition home or self-care (01) ==
PROVIDERS: Emergency Provider Physician Assistant
DX: S30.0XXA Contusion of lower back and pelvis, initial encounter (principal); V80.010A Animal-rider injured by fall from or being thrown from horse in noncollision accident, initial encounter
CPT/HCPCS: 72192; 99284